=== PATIENT | female | born 1955 | race Caucasian/White ===

== ENCOUNTER 2021-10-16 08:02 | Outpatient (CLI) | payer MEDICARE, BC, SELFPAY ==
[2021-10-21 12:09] LABS: QNTFERON TB Mitogen Value > 10.00 IU/mL (.); QNTFERON TB Nil Value 0.04 IU/mL (.); QNTFERON TB1+ Ag Value 0.06 IU/mL (.); QNTFERON TB2+ Ag Value 0.04 IU/mL (.)
[2021-10-21 13:27] LABS: QNTIFERON TB Positive Criteria Negative (Negative)
== END 2021-10-16 23:59 | disposition home or self-care (01) ==
LOC: MTLAB 08:07
PROVIDERS: PCP Internal Medicine; Referring Provider Internal Medicine Rheumatology; Visit Provider Internal Medicine Rheumatology
DX: M06.4 Inflammatory polyarthropathy (principal); M32.9 Systemic lupus erythematosus, unspecified; M35.00 Sjogren syndrome, unspecified; E11.9 Type 2 diabetes mellitus without complications; M79.7 Fibromyalgia; G56.01 Carpal tunnel syndrome, right upper limb; M47.897 Other spondylosis, lumbosacral region; M47.892 Other spondylosis, cervical region; K76.0 Fatty (change of) liver, not elsewhere classified; G47.33 Obstructive sleep apnea (adult) (pediatric); I10 Essential (primary) hypertension; L71.9 Rosacea, unspecified; Z79.899 Other long term (current) drug therapy
CPT/HCPCS: 36415; 86480

== ENCOUNTER → 2021-11-22 | Outpatient (CLI) | payer MEDICARE, BC, SELFPAY ==
--- NOTE | 2021-11-22 08:51 | NEURO ---
NCS and/or EMG Patient Report Ordering Doctor: Kacey Patrick DATE OF SERVICE: 11/22/21 Indication: Bilateral hand pain and numbness involving the first 4 digits (left greater than right). Evaluate for entrapment neuropathy. Findings: Nerve conduction studies were performed in the right and left upper extremities. The right median motor study recording the abductor pollicis brevis showed a normal amplitude, normal distal latency and mildly slowed conduction velocity. The right ulnar motor study recording the abductor digiti minimi showed a normal amplitude, normal distal latency and normal conduction velocity. No conduction block or focal slowing was present across the elbow. The right median-ulnar lumbrical / interosseous motor latencies showed a prolonged median latency compared to the ulnar. The right median sensory response recording digit two showed a normal amplitude, normal latency and borderline conduction velocity. The right ulnar sensory response recording digit five showed a normal amplitude, latency and conduction velocity. The right median sensory latency was mildly prolonged compared to the ulnar. The right radial sensory response recording over the extensor snuff box showed a normal amplitude, latency and conduction velocity. The left median motor study recording the abductor pollicis brevis showed a normal amplitude, prolonged distal latency and borderline conduction velocity. The left ulnar motor study recording the abductor digiti minimi showed a normal amplitude, normal distal latency and normal conduction velocity. No conduction block or focal slowing was present across the elbow. The left median sensory response recording digit two showed a normal amplitude, prolonged latency and slowed conduction velocity. The left ulnar sensory response recording digit five showed a normal amplitude, latency and conduction velocity. The left radial sensory response recording over the extensor snuff box showed a normal amplitude, latency and conduction velocity. Needle EMG of the left upper extremity and cervical paraspinal muscles was performed. No denervation was seen in any muscle. In the abductor pollicis brevis, motor units were slightly large with normal recruitment. All other motor unit morphology, activation and recruitment patterns were normal. Needle EMG of the left abductor pollicis brevis muscle was performed. No denervation was seen. Motor unit morphology, activation and recruitment patterns were normal. Impression: This is an abnormal study. 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 The severity is mild on the left and very mild/borderline on the right. These findings are compatible with the clinical diagnosis of carpal tunnel syndrome. In addition, there is no electrophysiologic evidence of a superimposed cervical radiculopathy in the left upper extremity. Jordy Parisi D.O. Multi Select Codes Neurology Neurology Interp Codes: 57017-58 [facility] [place]erv tst hernandez (interp) (Modifer 59), 43188-81 [facility] [place]n test comp (interp) and 22865-68 Nr cndj test 11-12 studies (interp)
== END | disposition home or self-care (01) ==
LOC: PSN 06:52
PROVIDERS: PCP Internal Medicine; Referring Provider Internal Medicine Rheumatology; Visit Provider Internal Medicine Rheumatology
DX: M06.4 Inflammatory polyarthropathy (principal); M32.9 Systemic lupus erythematosus, unspecified; M35.00 Sjogren syndrome, unspecified; E11.9 Type 2 diabetes mellitus without complications; M79.7 Fibromyalgia; G56.02 Carpal tunnel syndrome, left upper limb; M47.897 Other spondylosis, lumbosacral region; M47.892 Other spondylosis, cervical region; K76.0 Fatty (change of) liver, not elsewhere classified; G47.33 Obstructive sleep apnea (adult) (pediatric); I10 Essential (primary) hypertension; L71.9 Rosacea, unspecified; Z79.899 Other long term (current) drug therapy
CPT/HCPCS: 95885; 95886; 95912

== ENCOUNTER → 2022-01-10 | Outpatient (CLI) | payer MEDICARE, BC, SELFPAY ==
[2022-01-10 12:23] LABS: Absolute Lymphocyte Count 1.47 X10^3/uL (0.83-4.51); Absolute Neutrophil Count 6.1 X10^3/uL (2.0-7.7); Basophil# 0.05 X10^3/uL; Basophil% 0.6 % (0-1); Eosinophils% 2.4 % (0-5); Hematocrit 39.1 % (37-47); Hemoglobin 11.9 g/dL (12.0-15.0); Lymphocyte # 1.47 X10^3/ul (0.83-4.51); Lymphocyte % 17.7 % (19-41); Mean Corp Hgb Conc 30.4 g/dL (32-36); Mean Corpuscular Hgb 28.2 pg (27.0-32.0); Mean Corpuscular Volume 92.7 fL (81-99); Mean Platelet Vol. 10.2 fl (6.2-12.0); Monocyte% 4.8 % (0-10); NRBC Flagged by Analyzer 0 % (0-5); Neutrophil # 6.13 X10^3/uL (2.7-7.7); Neutrophil % 73.9 % (47-70); Platelet Count 313 K/mm3 (150-450); RBC Distribution Width CV 15.5 % (11.6-14.6); RBC Distribution Width SD 52.4 fl (35.1-43.9); Red Blood Count 4.22 M/mm3 (4.2-5.4); White Blood Count 8.3 K/mm3 (4.4-11.0)
[2022-01-10 12:42] LABS: ALB/GLOB Ratio 0.9 RATIO (0.9-2.4); AST(SGOT) 29 U/L (15-37); Alanine Aminotransfer ALT/SGPT 37 U/L (13-56); Albumin, Serum 3.6 g/dL (3.2-5.0); Alkaline Phosphatase 80 U/L (45-117); Anion Gap 5 (5-15); BUN 16 mg/dL (7-18); BUN/Creat Ratio 16.7 RATIO (10-20); Calcium,Total 9.3 mg/dL (8.5-10.1); Chloride 106 mmol/L (98-107); Creatinine, Serum 0.96 mg/dL (0.55-1.02); EST Glomerular Filtration Rate 62 mL/min (>60); Est Glom Filt Rate - Afr Amer 75 mL/min (>60); Globulin 4.2 g/dL (2.2-4.2); Glucose 182 mg/dL (74-106); Potassium 3.9 mmol/L (3.5-5.1); Protein, Total 7.8 g/dL (6.4-8.2); Sodium Level 139 mmol/L (136-145)
== END | disposition home or self-care (01) ==
LOC: MTLAB 09:43
PROVIDERS: PCP Internal Medicine; Referring Provider Internal Medicine Rheumatology; Visit Provider Internal Medicine Rheumatology
DX: M06.4 Inflammatory polyarthropathy (principal); M32.9 Systemic lupus erythematosus, unspecified; M35.00 Sjogren syndrome, unspecified; E11.9 Type 2 diabetes mellitus without complications; M79.7 Fibromyalgia; G56.01 Carpal tunnel syndrome, right upper limb; M47.897 Other spondylosis, lumbosacral region; M47.892 Other spondylosis, cervical region; K76.0 Fatty (change of) liver, not elsewhere classified; G47.33 Obstructive sleep apnea (adult) (pediatric); I10 Essential (primary) hypertension; L71.9 Rosacea, unspecified; Z79.899 Other long term (current) drug therapy
CPT/HCPCS: 36415; 80053; 85025